=== PATIENT | female | born 1975 ===

== ENCOUNTER 2016-08-20 12:03 | Emergency (ER) | payer OTHER ==
[2016-08-20] MEDS ORDERED: Naproxen 550 mg Tab PO STA (12:47)
--- NOTE | 2016-08-20 12:50 | C.PDOC ---
History Of Present Illness A 40 yo female c/o atraumatic right shoulder pain that occurred 2 weeks ago. Pain is worse with movement and palpation. Denies numbness, weakness, fever, chills, other joint pain, decrease in ROM, or any other complaints. Time Seen by Provider: 08/20/16 12:20 Chief Complaint (Nursing): Upper Extremity Problem/Injury History Per: Patient History/Exam Limitations: no limitations Onset/Duration Of Symptoms: Days Current Symptoms Are (Timing): Still Present Severity: Mild Exacerbating Factor(s): Movement, Other (Palpation) Recent travel outside of the [place]: No Additional History Per: Patient Past Medical History Reviewed: Historical Data, Nursing Documentation, Vital Signs Vital Signs: Last Vital Signs Temp Pulse Resp 18 08/20/16 13:12 BP Pulse Ox - Medical History PMH: Asthma Family History: States: Unknown Family Hx - Social History Hx Alcohol Use: No Hx Substance Use: No - Immunization History Hx Tetanus Toxoid Vaccination: No Hx Influenza Vaccination: No Hx Pneumococcal Vaccination: No Review Of Systems Except As Marked, All Systems Reviewed And Found Negative. Constitutional: Negative for: Fever, Chills, Other (Injury) Musculoskeletal: Positive for: Shoulder Pain (Right). Negative for: Other ( Other joint pain. Decreased ROM.) Neurological: Negative for: Weakness, Numbness Physical Exam - Physical Exam Appears: Non-toxic, In Acute Distress (Mild distress due to pain) Skin: Warm, Dry Head: Atraumatic Extremity: Normal ROM, Tenderness (Point tenderness to the anterior part of the shoulder), Capillary Refill (<2secs), No Deformity, Other (Abduct with pain) Extremity: Bilateral: Normal Color And Temperature Pulses: Left Radial: Normal, Right Radial: Normal Neurological/Psych: Oriented x3, Normal Motor, Normal Sensation, Other (NO focal deficit) Medical Decision Making Medical Decision Makin yo F with 2 wk h/o atraumatic R shoulder pain. Based on exam, likely tendonitis. Plans: -Anaprox -Sling Shoulder sling applied to the area. Dose of Anaprox given. Pt was instructed to ICE shoulder, wear sling and was advised to follow up with ortho referral provided within 1-2 days. Disposition - Disposition Referrals: Justus Redd III, MD [Staff Provider] - Disposition: HOME/ ROUTINE Disposition Time: 12:48 Condition: STABLE Prescriptions: Meloxicam [Mobic] 15 mg PO DAILY #30 tab Instructions: Tendinitis (ED), Shoulder Pain (ED) Forms: Work Excuse Print Language: GREEK - Clinical Impression Clinical Impression: Shoulder pain, right, Tendonitis - PA / PROFESSIONAL DEVELOPMENT MANAGER / Resident Statement MD/DO has reviewed & agrees with the documentation as recorded. - Scribe Statement The provider has reviewed the documentation as recorded by the Scribe Marcello villatoro All medical record entries made by the Leandro were at my direction and personally dictated by me. I have reviewed the chart and agree that the record accurately reflects my personal performance of the history, physical exam, medical decision making, and the department course for this patient. I have also personally directed, reviewed, and agree with the discharge instructions and disposition.
[2016-08-20] MEDS ORDERED: Naproxen 550 mg Tab PO ONE (13:09)
[2016-08-20 13:14] VITALS: RESP 18
== END 2016-08-20 13:37 | disposition home or self-care (01) ==
LOC: C.ER 12:03
DX: M75.91 Shoulder lesion, unspecified, right shoulder (principal)

== ENCOUNTER 2017-01-14 17:24 | Emergency (ER) | payer OTHER ==
[2017-01-14 17:45] VITALS: TEMP 98
[2017-01-14] MEDS ORDERED: Albuterol-Ipratrop 3 mg / 0.5 (3 ml) UD ONE ×2 (18:09→18:56)
[2017-01-14] MEDS ORDERED: Albuterol-Ipratrop 3 mg / 0.5 (3 ml) UD INH STA ×2 (18:24→18:47)
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
[2017-01-14 19:45] VITALS: BP 132/84; PULSE 88; RESP 16; O2SAT 98
== END 2017-01-14 19:44 | disposition home or self-care (01) ==
LOC: C.ER 17:24
DX: J06.9 Acute upper respiratory infection, unspecified (principal); J45.901 Unspecified asthma with (acute) exacerbation

== ENCOUNTER 2017-03-13 12:02 | Emergency (ER) | payer OTHER ==
[2017-03-13] MEDS ORDERED: Albuterol-Ipratrop 3 mg / 0.5 (3 ml) UD ONE (12:41)
[2017-03-13] MEDS ORDERED: Albuterol 0.083% Inhal Sol (2.5 mg/3 mL) UD INH STA (13:10)
[2017-03-13] MEDS ORDERED: Albuterol-Ipratrop 3 mg / 0.5 (3 ml) UD IH STA (13:10)
[2017-03-13] MEDS ORDERED: Albuterol 0.083% Inhal Sol (2.5 mg/3 mL) UD ONE (13:24)
--- NOTE | 2017-03-13 13:28 | RAD ---
HISTORY: cough/wheezing COMPARISON: None available. TECHNIQUE: Chest PA and lateral FINDINGS: LUNGS: No focal consolidation. Please note that chest x-ray has limited sensitivity for the detection of pulmonary masses. PLEURA: No significant pleural effusion identified. No definite pneumothorax . CARDIOVASCULAR: The cardiomediastinal silhouette appears within normal limits of size. OSSEOUS STRUCTURES: No acute osseous abnormality identified. VISUALIZED UPPER ABDOMEN: Unremarkable. OTHER FINDINGS: None. IMPRESSION: No focal consolidation, significant pleural effusion, or definite pneumothorax identified.
--- NOTE | 2017-03-13 14:07 | C.PDOC ---
History Of Present Illness 41yo female, presents to ED for evaluation of asthma exacerbation, present for the past 3 days. Patient states she has wheezing and dry cough; she has been taking treatments at home with no relief. She reports some chest soreness but denies any chest pressure or chest pain. She denies any fever, chills, nausea, vomiting. Patient offers no other medical complaints. Time Seen by Provider: 03/13/17 12:42 Chief Complaint (Nursing): Chest Pain History Per: Patient History/Exam Limitations: no limitations Onset/Duration Of Symptoms: Days (3) Current Symptoms Are (Timing): Still Present Quality: Other (soreness). denies: Pressure, "Pain" Additional History Per: Patient Past Medical History Reviewed: Historical Data, Nursing Documentation, Vital Signs Vital Signs: Last Vital Signs Temp 98.7 F 03/13/17 14:20 Pulse 100 H 03/13/17 14:20 Resp 18 03/13/17 14:20 BP 124/75 03/13/17 14:20 Pulse Ox 100 03/13/17 15:46 - Medical History PMH: Asthma Surgical History: No Surg Hx Family History: States: Unknown Family Hx - Social History Hx Alcohol Use: No Hx Substance Use: No - Immunization History Hx Tetanus Toxoid Vaccination: Yes Hx Influenza Vaccination: No Hx Pneumococcal Vaccination: No Review Of Systems Except As Marked, All Systems Reviewed And Found Negative. Constitutional: Negative for: Fever, Chills Cardiovascular: Positive for: Other (chest soreness). Negative for: Chest Pain Respiratory: Positive for: Wheezing Physical Exam - Physical Exam Appears: Non-toxic Skin: Normal Color Head: Atraumatic, Normacephalic Eye(s): bilateral: Normal Inspection Nose: Normal Oral Mucosa: Moist Neck: Supple Chest: Symmetrical, Tenderness Cardiovascular: Rhythm Regular Respiratory: Wheezing (bilaterally) Gastrointestinal/Abdominal: Normal Exam, Soft, No Tenderness ED Course And Treatment ECG: Interpreted By Me, Viewed By Me ECG Rhythm: Sinus Rhythm ECG Interpretation: No Acute Changes Rate From EC O2 Sat by Pulse Oximetry: 100 (RA) Pulse Ox Interpretation: Normal Medical Decision Making Medical Decision Making: Impression: Asthma exacerbation Plan: -- Albuterol 2.5 mg INH -- Duoneb 3ml INH -- Prednisone 60 mg PO Time: 1330 CXR HISTORY: cough/wheezing COMPARISON: None available. TECHNIQUE: Chest PA and lateral FINDINGS: LUNGS: No focal consolidation. Please note that chest x-ray has limited sensitivity for the detection of pulmonary masses. PLEURA: No significant pleural effusion identified. No definite pneumothorax . CARDIOVASCULAR: The cardiomediastinal silhouette appears within normal limits of size. OSSEOUS STRUCTURES: No acute osseous abnormality identified. VISUALIZED UPPER ABDOMEN: Unremarkable. OTHER FINDINGS: None. IMPRESSION: No focal consolidation, significant pleural effusion, or definite pneumothorax identified. Time: 1400 Upon reassessment, patient feels much better and is stable for discharge home. Disposition - Disposition Disposition: HOME/ ROUTINE Disposition Time: 14:05 Condition: IMPROVED Additional Instructions: Follow up with your PMD within 1-2 days. Return to Ed if feel worse. Prescriptions: Albuterol 0.083% [Albuterol Sulfate 3 Ml] 3 ml IH .Q4-6H #100 vial predniSONE [predniSONE Tab] 2 tab PO DAILY #8 tab Albuterol HFA [Ventolin HFA 90 mcg/actuation (8 g)] 1 puff IH .Q4-6H #1 inhaler Instructions: Asthma (ED) Forms: [email or web address] (Greenlandic) - Clinical Impression Clinical Impression: Asthma exacerbation - PA / SEMICONDUCTOR MANUFACTURING TECHNICIAN / Resident Statement MD/DO has reviewed & agrees with the documentation as recorded. - Scribe Statement The provider has reviewed the documentation as recorded by the Leandro Espinosa Provider Scribe Attestation: All medical record entries made by the Scribe were at my direction and personally dictated by me. I have reviewed the chart and agree that the record accurately reflects my personal performance of the history, physical exam, medical decision making, and the department course for this patient. I have also personally directed, reviewed, and agree with the discharge instructions and disposition.
[2017-03-13 14:21] VITALS: BP 124/75; PULSE 100; RESP 18; TEMP 98.7
[2017-03-13 15:35] VITALS: O2SAT 100
--- NOTE | 2017-03-14 23:39 | CARD ---
APPROVED REPORT EKG Measurement Heart [id number] MD [id number] <Conclusion> Normal sinus rhythm with sinus arrhythmia Normal ECG
== END 2017-03-13 14:20 | disposition home or self-care (01) ==
LOC: C.ER 12:02
DX: J45.901 Unspecified asthma with (acute) exacerbation (principal)

== ENCOUNTER 2017-03-31 17:33 | Emergency (ER) | payer OTHER ==
[2017-03-31] MEDS ORDERED: Albuterol 0.083% Inhal Sol (2.5 mg/3 mL) UD INH STA (18:29)
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
[2017-03-31] MEDS ORDERED: Albuterol 0.083% Inhal Sol (2.5 mg/3 mL) UD ONE (18:38)
[2017-03-31 18:54] LABS: HEMOGLOBIN 12.4 g/dL (11.0-16.0); MEAN CELL VOLUME 90.5 fL (81.0-99.0); RBC 4.04 Mil/uL (3.80-5.20); WHITE BLOOD COUNT 8.2 K/uL (4.8-10.8)
[2017-03-31 18:55] LABS: BASO % 0.7 % (0.0-2.0); EOS # 0.3 K/uL (0.0-0.7); EOS % 4.1 % (0.0-4.0); LYMPH # 1.3 K/uL (1.0-4.3); LYMPH % 15.6 % (20.0-40.0); MEAN CORPUSCULAR HEMOGLOBIN 30.7 pg (27.0-31.0); MEAN CORPUSCULAR HGB CONC 33.9 g/dL (33.0-37.0); MEAN PLATELET VOLUME 7.9 fL (7.2-11.7); MONO # 0.3 K/uL (0.0-0.8); MONO % 4.1 % (0.0-10.0); NEUT # 6.2 K/uL (1.8-7.0); NEUT % 75.5 % (50.0-75.0); NRBC % 0.1 % (0.0-2.0); RED CELL DISTRIBUTION WIDTH 13.4 % (11.5-14.5)
[2017-03-31 18:56] LABS: BASO # 0.1 K/uL (0.0-0.2)
[2017-03-31 18:58] LABS: ALB/GLOB RATIO 1.1 (1.0-2.1); ALBUMIN 3.9 g/dL (3.5-5.0); ALT/SGPT 27 U/L (9-52); AST/SGOT 16 U/L (14-36); BLOOD UREA NITROGEN 13 mg/dL (7-17); CALCIUM 8.8 mg/dl (8.6-10.4); GFR AFRICAN-AMERICAN > 60; GFR NON-AFRICAN AMERICAN > 60
[2017-03-31 20:37] VITALS: BP 128/63; PULSE 96; RESP 18; TEMP 97.8; O2SAT 99
--- NOTE | 2017-04-01 10:23 | RAD ---
HISTORY: Sepsis Patient COMPARISON: 03/13/2017. FINDINGS: LUNGS: The lungs are well inflated and clear. There is no focal consolidation. PLEURA: No significant pleural effusion identified, no pneumothorax apparent. CARDIOVASCULAR: Normal. OSSEOUS STRUCTURES: No significant abnormalities. VISUALIZED UPPER ABDOMEN: Normal. OTHER FINDINGS: None. IMPRESSION: No active pulmonary disease.
== END 2017-03-31 20:36 | disposition home or self-care (01) ==
LOC: C.ER 17:33
DX: J45.901 Unspecified asthma with (acute) exacerbation (principal)

== ENCOUNTER 2017-04-27 12:42 | Emergency (ER) | payer OTHER ==
[2017-04-27 13:07] VITALS: BP 112/77; PULSE 72; RESP 18; TEMP 98.2; O2SAT 100
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
== END 2017-04-27 14:32 | disposition home or self-care (01) ==
LOC: C.ER 12:42
DX: F32.9 Major depressive disorder, single episode, unspecified (principal)

== ENCOUNTER 2017-05-13 09:48 | Emergency (ER) | payer OTHER ==
[2017-05-13 10:03] VITALS: BMI 25.0
[2017-05-13] MEDS ORDERED: Albuterol-Ipratrop 3 mg / 0.5 (3 ml) UD IH STA (10:32)
[2017-05-13 10:38] VITALS: RESP 18
[2017-05-13] MEDS ORDERED: Albuterol-Ipratrop 3 mg / 0.5 (3 ml) UD ONE (10:44)
[2017-05-13 11:01] LABS: BASO # 0.1 K/uL (0.0-0.2); BASO % 1.1 % (0.0-2.0); EOS # 0.6 K/uL (0.0-0.7); EOS % 6.5 % (0.0-4.0); HEMOGLOBIN 12.3 g/dL (11.0-16.0); LYMPH # 1.6 K/uL (1.0-4.3); MEAN CELL VOLUME 90.7 fL (81.0-99.0); MEAN CORPUSCULAR HGB CONC 33.1 g/dL (33.0-37.0); MEAN PLATELET VOLUME 8.1 fL (7.2-11.7); MONO # 0.4 K/uL (0.0-0.8); MONO % 4.3 % (0.0-10.0); NEUT # 6.5 K/uL (1.8-7.0); NEUT % 71.1 % (50.0-75.0); RBC 4.1 Mil/uL (3.80-5.20); RED CELL DISTRIBUTION WIDTH 13.5 % (11.5-14.5); WHITE BLOOD COUNT 9.2 K/uL (4.8-10.8)
[2017-05-13 11:14] LABS: ALBUMIN 3.6 g/dL (3.5-5.0); ALT/SGPT 23 U/L (9-52); AST/SGOT 26 U/L (14-36); BLOOD UREA NITROGEN 11 mg/dL (7-17); CALCIUM 8.4 mg/dl (8.6-10.4); GFR AFRICAN-AMERICAN > 60; GFR NON-AFRICAN AMERICAN > 60
[2017-05-13 11:20] LABS: B-TYPE NATRIURETIC PEPTIDE 54.3 pg/mL (0-450)
--- NOTE | 2017-05-13 11:44 | C.PDOC ---
History Of Present Illness Pt was BIBEMS due to SOB, she was given Duoneb and 125mg of Solumedrol IV en route. Time Seen by Provider: 05/13/17 10:14 Chief Complaint (Nursing): Shortness Of Breath History Per: Patient, EMS Onset/Duration Of Symptoms: Days (few), Gradual Current Symptoms Are (Timing): Worse Initiating Event: Upper Respiratory Illness Current Respiratory Medications: See Home Med List, Albuterol Severity: Moderate Additional History Per: Prior Records Past Medical History Reviewed: Historical Data, Nursing Documentation, Vital Signs Vital Signs: Last Vital Signs Temp 98.1 F 05/13/17 10:03 Pulse 82 05/13/17 10:03 Resp 18 05/13/17 10:22 BP 122/80 05/13/17 10:03 Pulse Ox 100 05/13/17 10:03 - Medical History PMH: Asthma Surgical History: Family History: States: Unknown Family Hx - Social History Hx Tobacco Use: No (Quit few months ago) Hx Alcohol Use: No Hx Substance Use: No - Immunization History Hx Tetanus Toxoid Vaccination: No Hx Influenza Vaccination: No Hx Pneumococcal Vaccination: No Review Of Systems Except As Marked, All Systems Reviewed And Found Negative. Constitutional: Negative for: Fever ENT: Positive for: Nose Congestion. Negative for: Throat Pain Cardiovascular: Negative for: Chest Pain Respiratory: Positive for: Cough, Shortness of Breath, Wheezing. Negative for: Hemoptysis, Sputum Gastrointestinal: Negative for: Vomiting, Abdominal Pain Musculoskeletal: Negative for: Neck Pain, Back Pain, Leg Pain Skin: Negative for: Rash Neurological: Negative for: Weakness, Numbness Physical Exam - Physical Exam Appears: Non-toxic, No Acute Distress Skin: Normal Color, Warm, Dry, No Rash Head: Atraumatic, Normacephalic Eye(s): bilateral: Normal Inspection, PERRL, EOMI Throat: Normal Neck: Normal ROM, Supple Cardiovascular: Rhythm Regular Respiratory: No Accessory Muscle Use, Wheezing Gastrointestinal/Abdominal: Soft, No Tenderness Extremity: Normal ROM, No Pedal Edema, No Calf Tenderness Neurological/Psych: Oriented x3, Normal Speech, Normal Motor, Normal Sensation ED Course And Treatment - Laboratory Results Result Diagrams: 05/13/17 10:50 05/13/17 10:50 Lab Interpretation: No Acute Changes O2 Sat by Pulse Oximetry: 100 Pulse Ox Interpretation: Normal Progress - Interventions Interventions:: Observation - Medications Administered Inhaled nebulized: Anticholinergic, Beta-2 agonist - Data Reviewed Data Reviewed: Lab, Old records - Patient Status Patient status: Completely improved - Continuity of Care Discussed patient case with:: Patient, Family-HIPPA compliant, ED Nurse - Patient Plan Patient Plan: Discharge, F/U with PCP, Continue present meds Disposition Counseled Patient/Family Regarding: Studies Performed, Diagnosis, Need For Followup, Rx Given - Disposition Disposition: HOME/ ROUTINE Disposition Time: 11:47 Condition: IMPROVED Additional Instructions: Follow up with your doctor this week. Return to the ER if you develop shortness of breath, fever, chest pain, worsening of symptoms or if you have any other concerns. Prescriptions: Albuterol 0.083% [Albuterol Sulfate 3 Ml] 3 ml IH Q4 PRN #60 neb PRN Reason: Wheezing predniSONE [predniSONE Tab] 2 tab PO DAILY #10 tab Instructions: Asthma, Adult (DC) Forms: [employer] (Uzbek) Print Language: INDIAN - Clinical Impression Clinical Impression: Asthma exacerbation
[2017-05-13 11:55] VITALS: BP 108/73; PULSE 92; TEMP 97.8; O2SAT 98
== END 2017-05-13 11:58 | disposition home or self-care (01) ==
LOC: C.ER 09:48
DX: J45.901 Unspecified asthma with (acute) exacerbation (principal)

== ENCOUNTER 2017-06-10 02:34 | Emergency (ER) | payer OTHER ==
[2017-06-10 02:34] VITALS: BMI 25.0
[2017-06-10 02:45] VITALS: BP 119/77; PULSE 81; TEMP 98.1; O2SAT 98
--- NOTE | 2017-06-10 02:50 | C.PDOC ---
History Of Present Illness 41 y/o female with PMHx significant for asthma and allergies to pet dander, presents to the ED via EMS for shortness of breath. Patient states she has frequent asthma attacks, sometimes twice daily, but denies history of prior hospitalizations or intubation. Tonight patient reports becoming acutely short of breath. She attributes symptoms to mouse droppings in her house, which she is trying to rectify with her landlord. Patient then called EMS and was given albuterol x2 and IV solu-medrol en route. On arrival patient is asymptomatic, speaking in full sentences. Denies recent URI symptoms. Time Seen by Provider: 06/10/17 02:45 Chief Complaint (Nursing): Shortness Of Breath History Per: Patient History/Exam Limitations: no limitations Onset/Duration Of Symptoms: Mins Current Symptoms Are (Timing): Gone Current Respiratory Medications: Albuterol Past Medical History Reviewed: Historical Data, Nursing Documentation, Vital Signs Vital Signs: Last Vital Signs Temp 98.1 F 06/10/17 02:39 Pulse 81 06/10/17 02:39 Resp 22 06/10/17 02:39 BP 119/77 06/10/17 02:39 Pulse Ox 98 06/10/17 02:52 - Medical History PMH: Asthma Surgical History: Family History: States: Unknown Family Hx - Social History Hx Tobacco Use: No (Quit few months ago) Hx Alcohol Use: No Hx Substance Use: No - Immunization History Hx Tetanus Toxoid Vaccination: No Hx Influenza Vaccination: No Hx Pneumococcal Vaccination: No Review Of Systems Except As Marked, All Systems Reviewed And Found Negative. Constitutional: Negative for: Fever, Chills ENT: Negative for: Nose Discharge, Nose Congestion, Throat Pain Respiratory: Positive for: Shortness of Breath (now resolved). Negative for: Cough Physical Exam - Physical Exam Appears: Non-toxic, No Acute Distress Skin: Normal Color, Warm, Dry Head: Atraumatic, Normacephalic Eye(s): bilateral: Normal Inspection, PERRL, EOMI Nose: Normal Oral Mucosa: Moist Neck: Normal ROM, Supple Chest: Symmetrical Cardiovascular: Rhythm Regular, No Murmur, Other (S1, S2 are wnl) Respiratory: Normal Breath Sounds, No Accessory Muscle Use, No Rhonchi, No Wheezing, Other (Respirations are clear; Pt speaking full sentences, pulse ox is 98% on RA. No retractions) Gastrointestinal/Abdominal: Soft, No Tenderness, No Distention Extremity: Bilateral: Normal Color And Temperature (with no clubbing, cyanosis, or edema), Normal ROM Pulses: Left Dorsalis Pedis: Normal, Right Dorsalis Pedis: Normal Neurological/Psych: Oriented x3, Normal Speech, No Other (focal deficits) Gait: Steady ED Course And Treatment O2 Sat by Pulse Oximetry: 98 (RA) Pulse Ox Interpretation: Normal Medical Decision Making Medical Decision Making: Impression: Mild asthma exacerbation Patient with resolved symptoms on arrival to the ED. Lungs are clear on exam. No respiratory distress. Stable for d/c home. Will provide rx for steroid taper over the next few days. Patient advised to follow up with primary doctor in 1-2 days Disposition Counseled Patient/Family Regarding: Diagnosis, Need For Followup, Rx Given - Disposition Referrals: [facility] [Outside] Disposition: HOME/ ROUTINE Disposition Time: 02:49 Condition: FAIR Prescriptions: predniSONE [predniSONE Tab] 20 mg PO DAILY #5 tab Forms: [employer] (Vincentian) - POA Present On Arrival: None - Clinical Impression Clinical Impression: Asthma exacerbation - Scribe Statement The provider has reviewed the documentation as recorded by the Scribe (Cora Goddard) Provider Attestation: All medical record entries made by the Scribe were at my direction and personally dictated by me. I have reviewed the chart and agree that the record accurately reflects my personal performance of the history, physical exam, medical decision making, and the department course for this patient. I have also personally directed, reviewed, and agree with the discharge instructions and disposition.
[2017-06-10 02:59] VITALS: RESP 20
== END 2017-06-10 03:10 | disposition home or self-care (01) ==
LOC: C.ER 02:34
DX: J45.901 Unspecified asthma with (acute) exacerbation (principal)

== ENCOUNTER 2017-08-12 23:04 | Emergency (ER) | payer MEDICAID, OTHER ==
[2017-08-12 23:04] VITALS: BMI 25.0
[2017-08-12] MEDS ORDERED: Albuterol-Ipratrop 3 mg / 0.5 (3 ml) UD IH STA (23:24)
[2017-08-12] MEDS ORDERED: Albuterol 0.083% Inhal Sol (2.5 mg/3 mL) UD IH STA (23:24)
--- NOTE | 2017-08-12 23:43 | C.PDOC ---
History Of Present Illness 41 year old female with a Hx of asthma presents to the ER via EMS for SOB for the past week. Patient is on pulmicort and albuterol nebulizer at home, she states she has been using them for the past week with no improvement. Patient reports she had a nonproductive cough all night last night and felt tight. Patient continued feeling SOB which prompted her to call 911. Patient was given albuterol and solumedrol enroute. She has a Hx of intubation for asthma 8 years ago following the delivery of her youngest child. Denies chest pain, fever, chills, nausea, or vomiting. Time Seen by Provider: 08/12/17 23:19 Chief Complaint (Nursing): Shortness Of Breath History Per: Patient History/Exam Limitations: no limitations Onset/Duration Of Symptoms: Hrs Current Symptoms Are (Timing): Still Present Initiating Event: Other (Not known) Quality: Tightness Current Respiratory Medications: Albuterol, Other (Pulmicort) Associated Symptoms: denies: Fever, Chills, Chest Pain, Other (Nausea, vomiting) Recent travel outside of the [place]: No Past Medical History Reviewed: Historical Data, Nursing Documentation, Vital Signs Vital Signs: Last Vital Signs Temp 98.6 F 08/12/17 23:12 Pulse 112 H 08/12/17 23:12 Resp 22 08/12/17 23:12 BP 113/72 08/12/17 23:12 Pulse Ox 95 08/12/17 23:48 - Medical History PMH: Asthma Surgical History: Family History: States: Unknown Family Hx - Social History Hx Tobacco Use: No (Quit few months ago) Hx Alcohol Use: No Hx Substance Use: No - Immunization History Hx Tetanus Toxoid Vaccination: No Hx Influenza Vaccination: No Hx Pneumococcal Vaccination: No Review Of Systems Constitutional: Negative for: Fever, Chills Cardiovascular: Negative for: Chest Pain Respiratory: Positive for: Cough, Shortness of Breath. Negative for: Sputum Gastrointestinal: Negative for: Nausea, Vomiting Physical Exam - Physical Exam Appears: Non-toxic, Other (Speaking in complete sentences) Skin: Normal Color, Warm, Dry Head: Atraumatic, Normacephalic Eye(s): bilateral: Normal Inspection Oral Mucosa: Moist Throat: Normal, No Other (Swelling) Neck: Normal, Supple Chest: Symmetrical, No Tenderness Cardiovascular: Rhythm Regular Respiratory: No Rales, No Rhonchi, Wheezing (Mild expiratory) Gastrointestinal/Abdominal: Soft, No Tenderness Neurological/Psych: Oriented x3, Normal Speech ED Course And Treatment - Laboratory Results Result Diagrams: 08/12/17 23:49 08/12/17 23:48 Lab Interpretation: Normal O2 Sat by Pulse Oximetry: 95 (Room air) Pulse Ox Interpretation: Normal Progress Note: Blood work ordered. Albuterol nebulizer administered. Reevaluation Time: 00:20 Reassessment Condition: Improved (Lungs clear and patient remains comfortable) Disposition Counseled Patient/Family Regarding: Studies Performed, Diagnosis, Need For Followup, Rx Given - Disposition Referrals: [facility] [Outside] Disposition: HOME/ ROUTINE Disposition Time: 00:21 Condition: IMPROVED Prescriptions: Albuterol 0.083% [Albuterol Sulfate 3 Ml] 3 ml IH QID PRN #120 neb PRN Reason: Wheezing Budesonide [Pulmicort Respules] 0.5 mg IH BID #60 neb Methylprednisolone [Medrol Dose Pack (21 tabs)] 4 mg PO DAILY #21 mg Instructions: Asthma, Adult (DC) Forms: [employer] (Uruguayan) - Clinical Impression Clinical Impression: Asthma exacerbation - Scribe Statement The provider has reviewed the documentation as recorded by the Scribe Javon Dang All medical record entries made by the Scribe were at my direction and personally dictated by me. I have reviewed the chart and agree that the record accurately reflects my personal performance of the history, physical exam, medical decision making, and the department course for this patient. I have also personally directed, reviewed, and agree with the discharge instructions and disposition.
[2017-08-12] MEDS ORDERED: Albuterol-Ipratrop 3 mg / 0.5 (3 ml) UD ONE ×2 (23:44→23:45)
[2017-08-12 23:53] LABS: BASO # 0.1 K/uL (0.0-0.2); BASO % 0.9 % (0.0-2.0); EOS # 1.1 K/uL (0.0-0.7); EOS % 11.6 % (0.0-4.0); HEMOGLOBIN 12.7 g/dL (11.0-16.0); LYMPH # 3.7 K/uL (1.0-4.3); LYMPH % 37.7 % (20.0-40.0); MEAN CELL VOLUME 89.3 fL (81.0-99.0); MEAN CORPUSCULAR HEMOGLOBIN 30.5 pg (27.0-31.0); MEAN CORPUSCULAR HGB CONC 34.2 g/dL (33.0-37.0); MEAN PLATELET VOLUME 8.2 fL (7.2-11.7); MONO # 0.8 K/uL (0.0-0.8); MONO % 7.9 % (0.0-10.0); NEUT # 4.1 K/uL (1.8-7.0); NEUT % 41.9 % (50.0-75.0); RBC 4.16 Mil/uL (3.80-5.20); RED CELL DISTRIBUTION WIDTH 14.9 % (11.5-14.5); WHITE BLOOD COUNT 9.7 K/uL (4.8-10.8)
[2017-08-13 00:06] LABS: ALB/GLOB RATIO 1.3 (1.0-2.1); ALBUMIN 4.2 g/dL (3.5-5.0); ALT/SGPT 25 U/L (9-52); AST/SGOT 21 U/L (14-36); BLOOD UREA NITROGEN 13 mg/dL (7-17); CALCIUM 9.1 mg/dl (8.6-10.4); GFR AFRICAN-AMERICAN > 60; GFR NON-AFRICAN AMERICAN > 60
[2017-08-13 00:39] VITALS: RESP 18; O2SAT 99
[2017-08-13 00:50] VITALS: BP 110/55; PULSE 95; TEMP 97.8
== END 2017-08-13 00:51 | disposition home or self-care (01) ==
LOC: C.ER 23:04
DX: J45.901 Unspecified asthma with (acute) exacerbation (principal)

== ENCOUNTER 2018-02-04 20:57 | Emergency (ER) | payer MEDICAID ==
[2018-02-04 20:57] VITALS: BMI 25.0
[2018-02-04] MEDS ORDERED: Albuterol-Ipratrop 3 mg / 0.5 (3 ml) UD ONE ×2 (21:03→21:44)
[2018-02-04 21:30] VITALS: RESP 16
[2018-02-04] MEDS ORDERED: Sodium Chloride 0.9% 1,000 ML IV ONE (21:36)
--- NOTE | 2018-02-04 21:36 | C.PDOC ---
History Of Present Illness 42 year old female presents to the ED c/o SOB, wheezing. Patient reports having fever at home but patient is afebrile while in the ED. Patient is still a smoker, speaking in complete sentences. Patient denies chills, nausea, vomit, d iarrhea, CP, palpitations, headache, dizziness. Time Seen by Provider: 02/04/18 21:35 Chief Complaint (Nursing): Shortness Of Breath History Per: Patient History/Exam Limitations: no limitations Onset/Duration Of Symptoms: Days Current Symptoms Are (Timing): Still Present Initiating Event: Upper Respiratory Illness Quality: "Pain" Current Respiratory Medications: See Home Med List Recent travel outside of the [place]: No Additional History Per: Patient Past Medical History Reviewed: Historical Data, Nursing Documentation, Vital Signs Vital Signs: Last Vital Signs Temp 98.2 F 02/04/18 21:02 Pulse 111 H 02/04/18 21:02 Resp 16 02/04/18 21:29 BP 118/76 02/04/18 21:02 Pulse Ox 99 02/04/18 21:29 - Medical History PMH: Asthma Surgical History: Family History: States: Unknown Family Hx - Social History Hx Tobacco Use: No (Quit few months ago) Hx Alcohol Use: No Hx Substance Use: No - Immunization History Hx Tetanus Toxoid Vaccination: No Hx Influenza Vaccination: No Hx Pneumococcal Vaccination: No Review Of Systems Constitutional: Negative for: Fever, Chills Cardiovascular: Negative for: Chest Pain, Palpitations Respiratory: Positive for: Cough, Shortness of Breath, Wheezing. Negative for: Sputum Gastrointestinal: Negative for: Nausea, Vomiting, Abdominal Pain Skin: Negative for: Rash Neurological: Negative for: Weakness, Numbness, Headache Physical Exam - Physical Exam Appears: Non-toxic, No Acute Distress Skin: Warm, Dry Head: Normacephalic Eye(s): bilateral: Normal Inspection Oral Mucosa: Moist Neck: Supple Chest: Symmetrical Cardiovascular: Rhythm Regular Respiratory: No Rales, No Rhonchi, Wheezing (diffuse ) Gastrointestinal/Abdominal: Soft, No Tenderness, No Guarding, No Rebound Extremity: Bilateral: Atraumatic, Normal Color And Temperature, Normal ROM Neurological/Psych: Oriented x3, Normal Speech, Normal Cognition Gait: Steady ED Course And Treatment - Laboratory Results Result Diagrams: 02/04/18 21:52 12/13/18 21:52 O2 Sat by Pulse Oximetry: 99 (ON RA) Pulse Ox Interpretation: Normal - Radiology CXR: Interpreted by Me, Viewed By Me CXR Interpretation: No: Infiltrates, Fracture, Pnemothorax Progress Note: Plan: - Labs. - Duoneb. - Solumedrol 125 mg IVP. - IV fluids. - UA Reevaluation Time: 00:23 Reassessment Condition: Improved Critical Care Time - Critical Care Note Total Time (in mins): 30 Documented critical care: time excludes all time spent performing seperately billable procedures. Disposition Counseled Patient/Family Regarding: Studies Performed, Diagnosis, Need For Followup, Rx Given, Smoking Cessation - Disposition Referrals: [facility] [Outside] [facility] [Outside] Disposition: HOME/ ROUTINE Disposition Time: 21:35 Condition: FAIR Additional Instructions: Please return if symptoms recur Prescriptions: Albuterol HFA [Ventolin HFA 90 mcg/actuation (8 g)] 2 puff IH [id number] #1 puff Prednisone [Deltasone] 20 mg PO DAILY #5 tablet Instructions: Asthma, Adult (DC) Forms: [employer] (Bermudian) - Clinical Impression Clinical Impression: Asthma exacerbation - Scribe Statement The provider has reviewed the documentation as recorded by the Scribe Sacha Hutson All medical record entries made by the Scribe were at my direction and personally dictated by me. I have reviewed the chart and agree that the record accurately reflects my personal performance of the history, physical exam, medical decision making, and the department course for this patient. I have also personally directed, reviewed, and agree with the discharge instructions and disposition.
[2018-02-04] MEDS ORDERED: Sodium Chloride 0.9% 1,000 ML ONE (21:44)
[2018-02-04] MEDS: Albuterol-Ipratrop 3 mg / 0.5 (3 ml) UD IH SCH ×3 (21:45→22:15)
[2018-02-04 21:58] LABS: BASO # 0.1 K/uL (0.0-0.2); BASO % 0.8 % (0.0-2.0); EOS # 0.2 K/uL (0.0-0.7); EOS % 2.4 % (0.0-4.0); HEMOGLOBIN 12.4 g/dL (11.0-16.0); LYMPH # 1.2 K/uL (1.0-4.3); LYMPH % 12.7 % (20.0-40.0); MEAN CELL VOLUME 89.1 fL (81.0-99.0); MEAN CORPUSCULAR HEMOGLOBIN 29.8 pg (27.0-31.0); MEAN CORPUSCULAR HGB CONC 33.4 g/dL (33.0-37.0); MEAN PLATELET VOLUME 8.2 fL (7.2-11.7); MONO % 10.5 % (0.0-10.0); NEUT % 73.6 % (50.0-75.0); RBC 4.15 Mil/uL (3.80-5.20); RED CELL DISTRIBUTION WIDTH 14.7 % (11.5-14.5); WHITE BLOOD COUNT 9.5 K/uL (4.8-10.8)
[2018-02-04 22:04] LABS: HCG,QUALITATIVE URINE NEGATIVE (NEGATIVE)
[2018-02-04 22:07] LABS: SQUAMOUS EPITHIAL 7 /hpf (0-5); URINE BACTERIA RARE (<OCC); URINE BILIRUBIN NEGATIVE (NEGATIVE); URINE BLOOD NEGATIVE (NEGATIVE); URINE CLARITY Hazy (Clear); URINE COLOR Yellow (YELLOW); URINE GLUCOSE (UA) NORMAL (Normal); URINE LEUKOCYTE ESTERASE NEG Leu/uL (Negative); URINE PROTEIN NEGATIVE (NEGATIVE); URINE UROBILINOGEN NORMAL mg/dL (0.2-1.0)
[2018-02-04 22:10] LABS: ALB/GLOB RATIO 1.3 (1.0-2.1); ALBUMIN 4.2 g/dL (3.5-5.0); ALT/SGPT 18 U/L (9-52); AST/SGOT 20 U/L (14-36); BLOOD UREA NITROGEN 12 mg/dL (7-17); GFR NON-AFRICAN AMERICAN > 60
[2018-02-05 00:27] VITALS: BP 122/84; PULSE 94; TEMP 98.6; O2SAT 98
--- NOTE | 2018-02-05 10:34 | RAD ---
HISTORY: sob COMPARISON: Chest x-ray performed 03/31/17 TECHNIQUE: Chest, one view. FINDINGS: LUNGS: No focal consolidation. Please note that chest x-ray has limited sensitivity for the detection of pulmonary masses. PLEURA: No significant pleural effusion identified. No definite pneumothorax . CARDIOVASCULAR: Heart size appears within normal limits. No significant atherosclerotic calcification present. OSSEOUS STRUCTURES: Degenerative changes. VISUALIZED UPPER ABDOMEN: Unremarkable. OTHER FINDINGS: None. IMPRESSION: No focal consolidation.
== END 2018-02-05 01:25 | disposition home or self-care (01) ==
LOC: C.ER 20:57
DX: J45.901 Unspecified asthma with (acute) exacerbation (principal)
CPT/HCPCS: 71045; 80053; 81001; 84703; 85025; 96361; 96374; 99284; J2930; J7030